=== PATIENT | male | born 1990 | race African-American/Black ===

== ENCOUNTER 2019-01-22 16:05 | Emergency (ER) | payer OTHER ==
[~2019-01-22] VITALS: Ht 182.9 cm; Wt 83.9 kg
[~2019-01-22 16:05] MED LIST: AMOXICILLIN 50500 MG PO
[2019-01-22] MEDS ORDERED: MUPIROCIN22 GM TOP (16:51)
[2019-01-22 17:00] VITALS: BP 120/76
== END 2019-01-22 17:00 | disposition home or self-care (01) ==
LOC: M.ERS 16:05
DX: L73.9 Follicular disorder, unspecified (principal); Z88.8 Allergy status to other drugs, medicaments and biological substances

== ENCOUNTER 2019-07-31 02:23 | Inpatient (IN) | payer OTHER ==
[~2019-07-31] VITALS: Ht 182.9 cm; Wt 86.2 kg
[~2019-07-31 02:23] MED LIST changes: +MUPIROCIN22 GM TOP
[2019-07-31 02:30] VITALS: BP 147/87
[2019-07-31 03:11] LABS: INFLUENZA A ANTIGEN Negative (Negative); INFLUENZA B ANTIGEN Negative (Negative)
[2019-07-31 05:14] LABS: ABSOLUTE BASOPHILS 0.1 thou/uL (0.0-0.2); ABSOLUTE EOSINOPHILS 0.2 thou/uL (0.0-0.7); ABSOLUTE LYMPHOCYTES 1.4 thou/uL (0.8-5.3); ABSOLUTE MONOCYTES 0.6 thou/uL (0.0-1.2); ABSOLUTE NEUTROPHILS 11.5 thou/uL (1.6-8.1); BASOPHILS 0.4 %; EOSINOPHILS 1.3 %; HEMATOCRIT 40.4 % (42.0-52.0); HEMOGLOBIN 13.4 gm/dL (14.0-18.0); LYMPHOCYTES 10.4 %; MCH 28.3 pg (26.0-34.0); MCHC 33.1 g/dL (28.0-37.0); MCV 85.4 fL (80.0-100.0); MONOCYTES 4.6 %; MPV 7.8 fl. (7.2-11.1); NUCLEATED RBCS 0 /100WBC; PLATELET COUNT* 216 thou/uL (150-400); POLYS 83.3 %; RBC 4.73 mil/uL (4.50-6.00); RDW-CV 13.9 % (10.5-14.5); WBC 13.8 thou/uL (4.0-11.0)
[2019-07-31 05:18] LABS: INR 1.1; PROTIME 11.5 Seconds (9.20-11.50)
[2019-07-31 05:38] VITALS: BP 140/78
[2019-07-31 05:52] LABS: CALCIUM 8.5 mg/dL (8.5-10.1)
[2019-07-31 06:03] LABS: ALBUMIN 3.2 g/dL (3.4-5.0); TOTAL BILIRUBIN 0.5 mg/dL (<0.1-1.0); TOTAL PROTEIN 6.3 g/dL (6.4-8.2)
[2019-07-31 06:06] LABS: POTASSIUM 2.9 mmol/L (3.5-5.1)
--- NOTE | 2019-07-31 07:30 | NUR ---
PT A+OX4. ABX STARTED AND PO MED GIVEN WHEN AVAILABLE FROM [employer]. YOU CALL MESSAGE SENT TO [employer] EXECUTIVE DR HOFFMANN: PT'S K+ AND DAY RN NOTIFIED. CALL LIGHT IN REACH.
[2019-07-31 08:00] VITALS: BP 126/71
[2019-07-31] MEDS ORDERED: PROAIR HFA8.5 GM INH (10:20)
[2019-07-31] MEDS ORDERED: PREDNISONE 20 M20 M1 PO (10:20)
[2019-07-31] MEDS ORDERED: AZITHROMYCIN1 GM PO (10:20)
[2019-07-31 10:40] VITALS: BP 126/71
--- NOTE | 2019-07-31 11:43 | NUR ---
assumed pt care report received from nurse. pt is aox4. on ra. tracing sinus rythm on threat monitoring analyst. o2 saturation is 97% on ra. vss stable. see chart. pt denies pain , sob, n/v. pt asked when he could go home. potassium replacement given. iv abx given. enhanced isolation maintained. dicharge ordered. iv line removed. heart monitor retrieved. discharge instruction given to pt in room. pt instructed to stay on quarantine for two weeks as ordered. order written to pt for him to bring to work. e scripts called in to patient's pharmacy. 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 pt stated understanding. pt left room at 1115 accompanied to er exit by this nurse, ambulatory. room striped at 1137.
--- NOTE | 2019-08-01 08:51 | EKG ---
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: 1883 : 1990 Requested By: Shelbi Ashley Order Number: [id number] Reading MD: Brenton Kendrick Measurements Intervals [place] Rate: 73 P: 56 AL: 194 QRS: 41 QRSD: 118 T: 28 QT: 400 QTc: 441 Interpretive Statements Sinus rhythm Consider left atrial enlargement Probable left ventricular hypertrophy ST elev, probable normal early repol pattern Compared to ECG 10/30/2014 09:15:47 ST (T wave) deviation still present Electronically Signed On 08-01-2019 8:50:04 CDT by Brenton Kendrick [email or web address] <ELECTRONICALLY SIGNED> By: Brenton Kendrick MD, [facility] 08/01/19 0850 4 4 Brenton Kendrick MD, [facility] /EPI
== END 2019-07-31 11:15 | disposition home or self-care (01) | DRG 189 ==
LOC: M.ERS 02:23 → M.TBA-ER 04:31 → M.ERS 04:31 → M.TBA-ER 04:57 → M.2W 05:44
PROVIDERS: Emergency Medicine; ADMIT Internal Medicine
DX: J96.01 Acute respiratory failure with hypoxia (principal); J45.909 Unspecified asthma, uncomplicated; R68.89 Other general symptoms and signs; Z79.899 Other long term (current) drug therapy; Z88.8 Allergy status to other drugs, medicaments and biological substances

== ENCOUNTER 2020-11-15 13:13 | Emergency (ER) | payer OTHER ==
[~2020-11-15] VITALS: Ht 182.9 cm; Wt 86.2 kg
[~2020-11-15 13:13] MED LIST changes: +AZITHROMYCIN1 GM PO; +PREDNISONE 20 M20 M1 PO; +PROAIR HFA8.5 GM INH
[2020-11-15 14:00] VITALS: BP 127/73
== END 2020-11-15 14:01 | disposition home or self-care (01) ==
LOC: M.ERS 13:13
DX: S91.332A Puncture wound without foreign body, left foot, initial encounter (principal); W22.8XXA Striking against or struck by other objects, initial encounter; Y93.89 Activity, other specified; Y92.89 Other specified places as the place of occurrence of the external cause; Y99.8 Other external cause status

== ENCOUNTER 2021-05-14 08:53 | Emergency (ER) | payer BC ==
[~2021-05-14] VITALS: Ht 182.9 cm; Wt 86.2 kg
[2021-05-14 09:42] VITALS: BP 137/88
== END 2021-05-14 09:43 | disposition home or self-care (01) ==
LOC: M.ERS 08:53
DX: U07.1 COVID-19 (principal); J45.909 Unspecified asthma, uncomplicated; Z91.041 Radiographic dye allergy status